=== PATIENT | male | born 1935 | race Caucasian/White ===

== ENCOUNTER 2017-02-11 16:48 | Inpatient (IN) | payer MEDICARE, MEDICAID ==
--- NOTE | 2017-02-11 16:58 | ED Physician Chart ---
ED Chief Complaint/HPI - Patient Information Date Seen:: 02/11/17 Time Seen:: 16:50 Chief Complaint:: Abdominal pain History of Present Illness:: onset x one day of crampy, diffuse, abd. pain with possible syncope; pt found on the floor at his assisted living home; no report of H/As, neck pain, C/P, SOB , A/N/V/D/C, fever, chills, dizziness, vertigo, weakness, or urinary s/s Historian:: Patient Review:: Nurse's Note Reviewed, Old Chart Reviewed, EMS run form Reviewed ED Review of Systems - Review of Systems General/Constitutional: Fever, Chills, No weight loss, Weakness, No diaphoresis , No edema, No loss of appetite Skin: No skin lesions, No rash, No bruising Head: No headache, No light-headedness Eyes: No loss of vision, No pain, No diplopia ENT: No earache, No nasal drainage, No sore throat, No tinnitus Neck: No neck pain, No swelling, No thyromegaly, No stiffness, No mass noted Cardio Vascular: No chest pain, No palpitations, No PND, No orthopnea, No edema Pulmonary: No SOB, No cough, No sputum, No wheezing GI: No nausea, No vomiting, No diarrhea, No pain, No melena, No hematochezia, No constipation, No hematemesis G/U: No dysuria, Frequency, No hematuria, Nocturia Musculoskeletal: No bone or joint pain, No back pain, No muscle pain Endocrine: No polyuria, No polydipsia Psychiatric: Prior psych history, No depression, No anxiety, No suicidal ideation, No homicidal ideation, Auditory hallucination, No visual hallucination Hematopoietic: No bruising, No lymphadenopathy Allergic/Immuno: No urticaria, No angioedema Neurological: Syncope, Focal symptoms, Weakness, Paresthesia, Headache, No seizure, Dizziness, Confusion, Vertigo ED Past Medical History - Past Medical History Obtainable: Yes Past Medical History: HTN, CVA/TIA, Arthritis Family History: Diabetes Melitus, HTN Social History: Non Smoker, No Alcohol, No Drug Use, Single, Care Facility Surgical History: None Psychiatricy History: Depression, Schizophrenia, Dementia Medication: Reviewed Family Medical History - Family Member Father History Unknown: Yes ED Physical Exam - Physical Examination General/Constitutional: Awake, Well-developed, well-nourished, Alert, No distress, GCS 15, Non-toxic appearing, Ambulatory Head: Atraumatic Eyes: Lids, conjuctiva normal, PERRL, EOMI Skin: Nl inspection, No rash, No skin lesions, No ecchymosis, Well hydrated, No lymphadenopathy ENMT: External ears, nose nl, Nasal exam nl, Lips, teeth, gums nl Neck: Nontender, Full ROM w/o pain, No JVD, No nuchal rigidity, No bruit, No mass, No stridor Respiratory: Nl effort/Exclusion, Clear to Auscultation, No Wheeze/Rhonchi/Rales Cardio Vascular: RRR, No murmur, gallop, rubs, NL S1 S2 GI: No tenderness/rebounding/guarding, No organomegaly, No hernia, Normal BS's, Nondistended, No mass/bruits, No McBurney tenderness : No CVA tenderness Extremities: No tenderness or effusion, Full ROM, normal strength in all extremities, No edema, Normal digits & nails Neuro/Psych: Alert/oriented, DTR's symmetric, Normal sensory exam, Normal motor strength, Judgement/insight normal, Mood normal, Normal gait, No focal deficits Misc: Normal back, No paraspinal tenderness ED Labs/Radiology/EKG Results - Lab Results Results: BUN: 27 - Radiology Results Results: NAD - EKG Interpretations EKG Time:: 17:26 Rate & Rhythm: 70; NSR Comments:: T- Wave Inversions ED Septic Shock - . Is Septic Shock (SBP<90, OR Lactate>4 mmol\L) present?: No ED Reassessment (Disposition) - Reassessment Reassessment Condition:: Improved - Diagnosis Diagnosis:: Dx: Myocardial Ischemia; Dehydration; Syncope; S/P Falls - Aftercare/Follow up Instructions Aftercare/Follow-Up Instructions:: Counseled pt regarding lab results/diagnosis & need follow up, Counseled pt & family regarding lab results/diagnosis & need follow up - Patient Disposition Discharge/Transfer:: Acute Care w/in this hosp Accepting Physician:: Dr. Brown Time Called:: 2014 Time Responded:: 20:15 Admitted to:: Telemetry Spoke to:: Dr. Brown Admitting Medical Physician:: Dr. Brown Condition at Disposition:: Stable, Improved
[2017-02-11] MEDS ORDERED: Sodium Chloride 0.9% 1,000 ML IV ONE (16:59)
[2017-02-11 18:09] LABS: ALB/GLOB RATIO 1.9 (1.0-1.8); ALKALINE PHOSPHATASE 66 U/L (34-104); AMYLASE SERUM 86 U/L (29-103); ANION GAP 11.4 (7.0-16.0); BILIRUBIN,TOTAL 0.7 mg/dL (0.3-1.0); BUN - UREA NITROGEN 27 mg/dL (7-25); BUN/CREATININE RATIO 20.8; CALCIUM SERUM 9.8 mg/dL (8.6-10.3); CARBON DIOXIDE 26.1 mEq/L (21.0-31.0); CHLORIDE 102 mEq/L (98-107); CREATININE - SERUM 1.3 mg/dL (0.7-1.3); GLUCOSE 123 mg/dL (70-105); LIPASE 25 U/L (11-82); POTASSIUM SERUM 3.5 mEq/L (3.5-5.1); SGOT 22 U/L (13-39); SGPT/ALT 19 U/L (7-52); SODIUM SERUM 136 mEq/L (136-145)
[2017-02-11 18:44] LABS: HEMATOCRIT 44.3 % (41.0-60); HEMOGLOBIN 14.4 gm/dL (12-16); RED BLOOD COUNT 5.05 Mil/cmm (3.80-5.80); WHITE BLOOD COUNT 10.1 Th/cmm (4.8-10.8)
[2017-02-11 18:45] LABS: % BASOPHILS 0.7 % (0.0-2.0); % EOSINOPHILS 1.4 % (0.0-5.0); % MONOCYTES 7.6 % (2.0-10.0); % NEUTROPHILS 71.3 % (40.0-80.0); MEAN CELL VOLUME 87.6 fl (80-99); MEAN CORPUSCULAR HEMOGLOBIN 28.6 pg (27.0-31.0); MEAN CORPUSCULAR HGB CONC 32.6 pg (28.0-36.0); MEAN PLATELET VOLUME 7.7 fl; NEUTROPHILE ABSOLUTE 7.2 Th/cmm (1.8-8.0); PLATELET COUNT 243 Th/cmm (150-400); RED CELL DISTRIBUTION WIDTH 13.2 % (11.5-20.0)
[2017-02-11 18:50] LABS: INR 0.97 (0.5-1.4); PROTHROMBIN TIME (TEST) 10.1 SECONDS (9.5-11.5)
[2017-02-11] MEDS: Sodium Chloride 0.9% 1,000 ML IV SCH (22:49)
[2017-02-11] MEDS: Acetaminophen 500 MG TAB PO PRN (22:54)
[2017-02-12 01:34] VITALS: BP 156/83
[2017-02-12 06:12] LABS: % BASOPHILS 0.1 % (0.0-2.0); % EOSINOPHILS 2.6 % (0.0-5.0); % LYMPHOCYTES 22.6 % (20.0-50.0); % MONOCYTES 7.3 % (2.0-10.0); % NEUTROPHILS 67.4 % (40.0-80.0); HEMATOCRIT 41.6 % (41.0-60); HEMOGLOBIN 14.2 gm/dL (12-16); MEAN CELL VOLUME 86.8 fl (80-99); MEAN CORPUSCULAR HEMOGLOBIN 29.5 pg (27.0-31.0); MEAN PLATELET VOLUME 7.7 fl; NEUTROPHILE ABSOLUTE 5.7 Th/cmm (1.8-8.0); PLATELET COUNT 224 Th/cmm (150-400); RED BLOOD COUNT 4.79 Mil/cmm (3.80-5.80); WHITE BLOOD COUNT 8.4 Th/cmm (4.8-10.8)
[2017-02-12 06:41] LABS: ANION GAP 10.5 (7.0-16.0); BUN - UREA NITROGEN 17 mg/dL (7-25); BUN/CREATININE RATIO 15.5; CALCIUM SERUM 8.5 mg/dL (8.6-10.3); CARBON DIOXIDE 23.9 mEq/L (21.0-31.0); CHLORIDE 110 mEq/L (98-107); CHOLESTEROL 137 mg/dL (<200); CREATININE - SERUM 1.1 mg/dL (0.7-1.3); GLUCOSE 110 mg/dL (70-105); POTASSIUM SERUM 3.4 mEq/L (3.5-5.1); SODIUM SERUM 141 mEq/L (136-145); TRIGLYCERIDES 110 mg/dL (<150)
--- NOTE | 2017-02-12 08:05 | Diagnostic Imaging Report ---
Head CT without intravenous contrast Indication: Syncope, falls Comparison: None Technique: Axial images were obtained from the vertex to the skull base without IV contrast. Coronal reconstructions were made. Total DLP: 788, CTDI41 FINDINGS: Images of the brain obtained without contrast demonstrate no evidence of an acute hemorrhage. Atrophy is noted. Diffuse white matter disease is seen with small old infarcts involving the bilateral occipital lobe regions. There is generalized ectasia of the intracranial arterial system. The ventricles and basal cisterns are patent. No mass effect or midline shift. Atherosclerosis is noted. There is mucosal thickening of the paranasal sinuses. No evidence of skull fracture or focal soft tissue swelling. IMPRESSION: No evidence of an acute intracranial hemorrhage. Diffuse atrophy and diffuse white matter disease which is nonspecific and may be due to chronic microvessel ischemia. Small old infarcts in the bilateral occipital regions are also noted Diffuse atherosclerotic vascular disease with generalized ectasia of the intracerebral arterial system.
--- NOTE | 2017-02-12 08:06 | Diagnostic Imaging Report ---
CHEST X-RAY: AP view INDICATION: pain COMPARISON: None FINDINGS: She is rotated. Left chest wall pacer is noted with leads in the region right atrium and right ventricle. There is evidence of prior median sternotomy. Chronic lung changes are seen with increased right basal lung markings. No focal consolidative or pleural effusions. Heart size at upper limits of normal. Tortuous aorta is noted. Degenerative changes of the spine are noted. IMPRESSION: Increased right basal lung markings likely due to atelectasis. No focal consolidation identified. Evidence of prior median sternotomy and cardiac pacemaker placement. Tortuous aorta with atherosclerotic vascular disease.
--- NOTE | 2017-02-12 08:17 | Diagnostic Imaging Report ---
CT abdomen and pelvis without intravenous contrast Indication: Abdominal pain Comparison: None, Technique: Axial images were obtained from the lung bases to the bilateral proximal femurs without IV contrast. Coronal reconstructions were made. total DLP: 359, CTDI7.6 FINDINGS: Atelectatic changes of the lung bases are noted. Pacemaker is partially visualized. There is evidence of prior median sternotomy. Assessment of the solid organs is limited due to lack of IV contrast. No evidence of focal hepatic, splenic, lesions. Pancreatic gland calcifications are noted. No focal adrenal lesions. There is a 8 mm right renal exophytic lesion possibly a cyst. Heterogeneous density seen along the scrotal region. Area of induration is seen along the right groin region with few pockets of gas. Gas-filled loops of bowel are noted. Mild diverticulosis is noted without evidence of diverticulitis. No appendicitis. Diffuse atherosclerotic vascular disease is noted. No evidence of free fluid or free air. Prominent prostate gland is noted. Mild generalized prominence of the urinary bladder wall is noted. Small bilateral fat-containing hernias are noted. Degenerative changes of this advanced degenerative changes of the spine are noted. IMPRESSION: Mild diverticulosis. No evidence of diverticulitis. Nonspecific gas-filled loops of bowel without evidence of obstruction. Moderate amount of stool is noted. Prominent soft tissue density the scrotal region with induration on the right groin region and a few pockets of gas in the right groin region. Correlation is made with infectious or inflammatory process. Consider further assessment with ultrasound. No evidence of free fluid. Prominent prostate gland please clinically clinical findings. Mild generalized urinary bladder wall thickening is noted which may be due to infectious or inflammatory process or possibly sequela patient's prominent prostate gland and bladder outlet obstruction. Small bilateral fat-containing hernias. 8 mm right renal exophytic lesion, probably a cyst. Ultrasound would further clarify Diffuse atherosclerotic vascular disease. Degenerative changes.
[2017-02-12] MEDS: Aspirin 81mg Chewable Tab PO SCH (08:35)
[2017-02-12 08:36] LABS: CREATINE KINASE MB 17.9 ng/mL (0.6-6.3)
--- NOTE | 2017-02-12 08:57 | Diagnostic Imaging Report ---
CHEST X-RAY: AP view INDICATION: Cardiomegaly COMPARISON: Chest x-ray 02/11/2017 FINDINGS: The patient is rotated. There is prominence of right paratracheal soft tissues. Improving lung aeration is noted. Left chest wall pacemaker is stable. No evidence of cardiomegaly. Tortuous aorta is noted with atherosclerosis. There is evidence of prior median sternotomy. No focal consolidation or effusions. IMPRESSION: No focal consolidation identified. There is improved aeration of the right lung base. No evidence of cardiomegaly. Tortuous aorta is noted with atherosclerosis. Postsurgical changes. Right paratracheal soft tissue density possibly due to rotation and prominent vasculature. If indicated CT would provide additional detail and assessment.
[2017-02-12] MEDS ORDERED: Non-Formulary Item 1 EA (Mirabegron [Myrbetriq] 50 MG) PO SCH (09:00)
[2017-02-12] MEDS: Ciprofloxacin 200mg Premix PB 200 MG/100 ML BAG IV SCH ×2 (10:48→20:34)
--- NOTE | 2017-02-12 10:59 | Diagnostic Imaging Report ---
KUB single view HISTORY: Abdominal pain. COMPARISON: None FINDINGS: Generalized gas-filled loops of bowel are noted. Degenerative changes of the spine are noted. Postsurgical changes of the lower mediastinum are noted. Atherosclerosis is noted. IMPRESSION: Nonspecific bowel gas pattern.
[2017-02-12] MEDS: Acetaminophen 500 MG TAB PO PRN ×2 (12:00→15:08)
[2017-02-12] MEDS: Sodium Chloride 0.9% 1,000 ML IV SCH (12:00)
--- NOTE | 2017-02-12 12:10 | History & Physical ---
ADMIT DATE: 02/12/2017 CHIEF COMPLAINT: Abdominal pain, weakness, and diarrhea. HISTORY OF PRESENT ILLNESS: This is an 81-year-old gentleman who lives at [facility] under the care of Dr. Beltran with history significant for essential hypertension, history of CVA/TIA, arthritis, history of CAD, status post pacemaker placement, who is somewhat of a poor historian, transferred to the ER secondary to a 3-day history of worsening abdominal cramping/pain and worsening weakness. The patient denies any unusual p.o. intake, but the pain got worst yesterday to the point that he almost fainted as he was in the toilet. At that time, he reports an episode of diarrhea, which is reported as nonbloody. He was able to get up and call for help and now has been transferred to this facility for further management and care. On further questioning, he denies any unusual p.o. intake, any recent traveling, or any known sick contacts. He also denies any fever or chills. He does admit to multiple episodes of nausea and vomiting, nonbloody, no coffee ground reported. As noted above, he has had diarrhea as well, which is nonbloody. Given his dizziness, the patient underwent a head CT at the ER showing diffuse atrophy and white matter disease, which is nonspecific as well as diffuse atherosclerotic vascular disease. He also underwent an abdominal and pelvic CT showing, mild diverticulosis with no evidence of diverticulitis. The patient has been admitted to the medical floor for further management and care. Pain has been more localized on the left lower quadrant and is not necessarily associated with p.o. intake, although lately when eats, he feels nauseated. PAST MEDICAL HISTORY: As noted above. PAST SURGICAL HISTORY: Pacemaker placement. FAMILY HISTORY: There is history of diabetes and hypertension. SOCIAL HISTORY: No alcohol. No ETOH or illicit drug usage. Currently, lives at [facility]. ALLERGIES: NKDA. OUTPATIENT MEDICATIONS: Ginkgo biloba 60 mg every day, Tylenol with Codeine #4 one tab q. 8 hours p.r.n. for severe pain, Proscar 5 mg every day, he is on Myrbetriq 50 every day, Protonix 40 at bedtime, Requip 0.5 every day, and valsartan 320 at bedtime. REVIEW OF SYSTEMS: CONSTITUTIONAL: He denies any fever, chills, or recent weight loss. CARDIOVASCULAR: No chest pain or palpitations. PULMONARY: No cough or phlegm production. No shortness of breath. GASTROINTESTINAL: As noted above, he has been experiencing abdominal pain associated with nausea, vomiting, and mild diarrhea. GENITOURINARY: Denies any hematuria, dysuria, or nocturia. NEUROLOGIC: Denies any syncopal episodes, any headaches, or any changes in vision. PHYSICAL EXAMINATION: VITAL SIGNS: Temperature 98.0, pulse 75-77, blood pressure 181/96, respirations 18, satting 95-97% on room air. GENERAL: Well developed, well nourished, asleep, but arousable. He is oriented x 3. HEAD AND NECK: Normocephalic, atraumatic. Pupils reactive to light. Extraocular movements are intact. Oropharynx moist and clear. CARDIAC: Regular rate and rhythm without any murmurs. LUNGS: Clear to auscultation bilaterally. ABDOMEN: Soft, supple, tender to palpation on the left lower quadrant with no rebound. There are currently hypoactive bowel sounds. There are no peritoneal signs. LOWER EXTREMITIES: There is no edema. NEUROLOGIC: Grossly intact, although full exam cannot be done. Cranial nerves 2-12 grossly within normal range. LABORATORY DATA: CBC within normal limits. Chem-7 showed a BUN of 27 and glucose of 123. CPK was 277. Troponin 0.02. LFTs within normal limits. DIAGNOSTICS: Please refer to the HPI. There was also an x-ray done showing no focal consolidation identified. There is no evidence of cardiomegaly. There is tortuous aorta as noted with atherosclerosis and postsurgical changes, right paratracheal soft tissue density, possible rotation and prominent vasculature was noted. On the pelvic CT, there is also an 8 mm right renal exophytic lesion, probably a cyst. IMPRESSION: 1. Abdominal pain. Differential will include diverticulosis/diverticulitis versus colitis versus constipation given his narcotics usage. Other etiologies include gastroenteritis. 2. History of coronary artery disease/arrhythmia status post pacemaker placement. 3. History of cerebrovascular accident/transient ischemic attack. 4. Essential hypertension. 5. Right kidney lesions, likely cyst. 6. History of acid reflux disease. 7. History of BPH. 8. History of restless legs syndrome. PLAN: The patient has been admitted to the medical floor for further management and care. He has been placed on IV fluids and empiric IV antibiotics, namely Cipro and Flagyl. I will also start him on Protonix IV push and will also give him Solu-Medrol and taper as tolerated. KUB will also be asked for and GI eval for further management and care. He will be kept on his other medications as scheduled. He will be placed on clonidine p.r.n. for elevated blood pressure readings. JOB# [id number] RUBI
[2017-02-12] MEDS: methylPREDNISolone SS 40 mg Vial IVP SCH ×2 (15:03→20:35)
[2017-02-12 16:12] LABS: URINE BILIRUBIN NEGATIVE (NEGATIVE); URINE BLOOD MODERATE (NEGATIVE); URINE GLUCOSE (UA) NEGATIVE (NEGATIVE); URINE KETONE TRACE mg/dL (NEGATIVE); URINE PH 5.5 (4.6 - 8.0); URINE PROTEIN TRACE mg/dL (NEGATIVE); URINE UROBILINOGEN 0.2 E.U./dL (0.2 - 1.0)
[2017-02-12 16:32] LABS: URINE BACTERIA NONE SEEN /hpf (NONE SEEN); URINE COLOR YELLOW; URINE EPITHELIAL CELLS RARE /lpf (FEW); URINE WBC 0-2 /hpf (0-5)
--- NOTE | 2017-02-12 18:47 | Cardiology ---
02/12/2017 PATIENT OF: Dr. Brown. M-MODE ECHOCARDIOGRAM: Mitral valve, anterior leaflet of mitral valve shows normal excursion, EF velocity. Posterior leaflets of mitral valve shows normal excursion. Left ventricular posterior wall shows increased thickness, normal excursion. Interventricular septum shows increased thickness, normal excursion, hypertrophy of the left ventricle, ejection fraction 55%. Left atrium normal. Aortic root shows normal dimension, normal excursion of aortic leaflets. CONCLUSION: Hypertrophy of the left ventricle, ejection fraction 55%. 2D ECHOCARDIOGRAM: Long axis view showed normal sized left ventricle with hypertrophy of the left ventricle. Left atrium normal. Aortic root shows normal dimension, normal excursion of aortic leaflets. Short axis view of mitral valve normal. Short axis view of aortic valve normal. Apical 4-chamber view showed normal sized left ventricle, left atrium, right ventricle, right atrium, tricuspid and mitral valve. CONCLUSION: Hypertrophy of the left ventricle, ejection fraction 55%. Doppler study shows mild mitral regurgitation, tricuspid regurgitation, and aortic regurgitation. [facility]# [id number]
[2017-02-12] MEDS ORDERED: Potassium Chloride 20 mEq ER Tab PO ONE (18:54)
[2017-02-12] MEDS ORDERED: Pantoprazole 40 mg EC Tab PO SCH (21:00)
[2017-02-13] MEDS ORDERED: Acetaminophen 500 MG TAB ONE ×2 (01:04→05:10)
[2017-02-13] MEDS: Acetaminophen 500 MG TAB PO PRN ×4 (01:06→21:15)
[2017-02-13] MEDS: Sodium Chloride 0.9% 1,000 ML IV SCH ×2 (03:20→13:35)
[2017-02-13] MEDS: methylPREDNISolone SS 40 mg Vial IVP SCH ×3 (05:07→20:53)
[2017-02-13 06:30] LABS: % BASOPHILS 0.7 % (0.0-2.0); % LYMPHOCYTES 13.8 % (20.0-50.0); % MONOCYTES 0.8 % (2.0-10.0); % NEUTROPHILS 84.7 % (40.0-80.0); HEMATOCRIT 41.7 % (41.0-60); HEMOGLOBIN 13.9 gm/dL (12-16); MEAN CELL VOLUME 87.9 fl (80-99); MEAN CORPUSCULAR HEMOGLOBIN 29.4 pg (27.0-31.0); MEAN CORPUSCULAR HGB CONC 33.4 pg (28.0-36.0); MEAN PLATELET VOLUME 7.7 fl; NEUTROPHILE ABSOLUTE 6.5 Th/cmm (1.8-8.0); PLATELET COUNT 229 Th/cmm (150-400); RED BLOOD COUNT 4.74 Mil/cmm (3.80-5.80); RED CELL DISTRIBUTION WIDTH 13.1 % (11.5-20.0); WHITE BLOOD COUNT 7.8 Th/cmm (4.8-10.8)
[2017-02-13 06:54] LABS: ALB/GLOB RATIO 1.7 (1.0-1.8); ALKALINE PHOSPHATASE 50 U/L (34-104); ANION GAP 11.3 (7.0-16.0); BILIRUBIN,TOTAL 0.7 mg/dL (0.3-1.0); BUN - UREA NITROGEN 26 mg/dL (7-25); CHLORIDE 110 mEq/L (98-107); CREATININE - SERUM 1.3 mg/dL (0.7-1.3); GLUCOSE 170 mg/dL (70-105); POTASSIUM SERUM 4.3 mEq/L (3.5-5.1); SGOT 20 U/L (13-39); SGPT/ALT 14 U/L (7-52); SODIUM SERUM 139 mEq/L (136-145)
[2017-02-13] MEDS: Aspirin 81mg Chewable Tab PO SCH (10:27)
[2017-02-13] MEDS ORDERED: Probiotic Screen MC PRN (14:23)
[2017-02-13] MEDS ORDERED: APAP/Codeine 300 mg/30 mg Tab PO PRN (19:47)
--- NOTE | 2017-02-13 20:08 | Discharge Summary ---
DATE OF DISCHARGE: 02/13/2017 ADMITTING DIAGNOSES: 1. Abdominal pain. Differential includes diverticulitis versus colitis versus acute gastroenteritis. 2. Mild azotemia/renal insufficiency. 3. Right kidney cyst. SECONDARY DIAGNOSES: Include: 1. History of coronary artery disease. 2. History of arrhythmia, status post pacemaker placement. 3. History of cerebrovascular accident. 4. Essential hypertension. 5. History of acid reflux disease. 6. History of benign prostatic hyperplasia. 7. History of restless legs syndrome. DISCHARGE DIAGNOSES: 1. Abdominal pain, clinically resolved, likely acute gastroenteritis versus colitis. 2. Dehydration, improved. CONSULTANTS: No consultants were used during this admission. MAJOR PROCEDURES: Include head CT showing diffuse atrophy, white matter disease, which is nonspecific as well as diffuse atherosclerotic vascular disease. CT of the abdomen and pelvis showing mild diverticulosis with no evidence of diverticulitis. He also had a 2D echo showing hypertrophy of the left ventricle with an EF of 55%. BRIEF HOSPITAL COURSE: An 81-year-old gentleman who was transferred from [facility] after a 3-day history of worsening abdominal cramping/pain associated with weakness. He also reported nausea, vomiting and some diarrhea, but no unusual p.o. intake. He also denied any fever or chills. CT of the abdomen and pelvis was done in the ER showing the above-mentioned resolved. On physical exam, he had tenderness to palpation on the left middle and left lower quadrant. He was admitted and placed on IV antibiotics, IV fluids and was placed also on Solu-Medrol. By hospital day #2, his symptoms improved, no longer complaining of abdominal pain, nausea, vomiting or diarrhea. He has been tolerating his diet and is currently eating 80%-100%. DISCHARGE MEDICATIONS: Tylenol 500 mg q. 4 p.r.n. for pain, aspirin 81 every day, Cipro 250 mg b.i.d. x 7 days, clonidine p.r.n. for SBP greater than 160, Proscar 5 mg every day, Solu-Medrol 40 mg IV q.12, Flagyl 500 mg q.i.d. x 7 more days, Zofran 4 mg IV/p.o. q.4h p.r.n. for nausea and vomiting, and Protonix 40 mg every day, and Diovan 320 mg q.h.s. CONDITION ON DISCHARGE: Stable. DISPOSITION: The patient will be discharged to jail facility ([facility]) for continuation of his IV antibiotics and for physical therapy. [facility]# [id number] MTDSalome
--- NOTE | 2017-02-13 23:15 | Consultation ---
DATE OF CONSULTATION: 02/13/2017 INPATIENT CONSULTATION NOTE REFERRING PHYSICIAN: Dr. Brown. REASON FOR CONSULTATION: Abdominal pain. HISTORY OF PRESENT ILLNESS: This is an 81-year-old male with complaints of abdominal pain today along with some diarrhea. The patient has other medical problems, but at this time, he reported having nonbloody diarrhea and vague abdominal pain. The patient denies having any nausea or vomiting. He had a CT scan done that showed diverticulosis without diverticulitis. The patient is somewhat of a poor historian. PAST MEDICAL HISTORY: Hypertension, stroke, TIA, arthritis, and coronary artery disease. PAST SURGICAL HISTORY: Pacemaker placement. FAMILY HISTORY: Noncontributory. SOCIAL HISTORY: No tobacco, alcohol, or IV drug usage. Resident of [facility]. ALLERGIES: None. CURRENT MEDICATIONS: Tylenol, aspirin, Cipro, Proscar, Solu-Medrol, Flagyl, Zofran, Protonix, Requip, and Diovan. REVIEW OF SYSTEMS: Ten-point review of systems was unobtainable. PHYSICAL EXAMINATION: VITAL SIGNS: Temperature 97.6, breathing 18, pulse of 67, blood pressure 159/80, satting 95%. GENERAL: In no apparent distress. EYES: Anicteric, normal conjunctivae. HEENT: Normocephalic and atraumatic. Moist mucous membranes. NECK: Soft and supple. CHEST: Clear. No effort. CARDIOVASCULAR: Regular rate and rhythm. ABDOMEN: Soft. Mildly tender. No rebound or guarding. SKIN: Warm and dry. EXTREMITIES: Reveal no cyanosis. NEUROLOGIC: Awake. LABORATORY DATA: Show white count 7.8, hemoglobin 13.9, platelets of 229,000, total bilirubin 0.7, AST 20, ALT 14, alkaline phosphatase 50. CT abdomen and pelvis showed diverticulosis without diverticulitis. Moderate amount of stool is noted in the colon. There is also some soft tissue density in the scrotal region, some prominence of the prostate gland. KUB showed nonspecific bowel gas pattern. IMPRESSION: This is an 81-year-old male with vague abdominal pain along with some diarrhea. Cause of abdominal pain could be due to constipation, IBS. CT does not show any evidence of diverticulitis, only diverticulosis. The patient also has abnormal prostate on CT, and based on this, I would recommend the primary or hospitalist get a urologist to see the patient as this may be a contributing factor to his abdominal pain. For the diarrhea, this could be due to an infectious process or overflow diarrhea. If the patient is constipated, stool collection would be reasonable. If the diarrhea persists, then the patient may need colonoscopy. PLAN: 1. Check stool studies. 2. Provide the patient with some mineral oil to alleviate the constipation. 3. If diarrhea persists, may need colonoscopy. 4. PCP and/or hospitalist to consider urology evaluation. Thank you for allowing me to participate. Please call me if you have any questions. JOB# [id number]
[2017-02-14 06:01] LABS: MEAN PLATELET VOLUME 8.4 fl
[2017-02-14 06:13] LABS: HEMATOCRIT 39.6 % (41.0-60); HEMOGLOBIN 13.7 gm/dL (12-16); MEAN CELL VOLUME 87.4 fl (80-99); MEAN CORPUSCULAR HEMOGLOBIN 30.3 pg (27.0-31.0); MEAN CORPUSCULAR HGB CONC 34.6 pg (28.0-36.0); PLATELET COUNT 220 Th/cmm (150-400); RED BLOOD COUNT 4.53 Mil/cmm (3.80-5.80)
[2017-02-14 06:18] LABS: ANION GAP 9.9 (7.0-16.0); BUN - UREA NITROGEN 31 mg/dL (7-25); BUN/CREATININE RATIO 25.8; CHLORIDE 110 mEq/L (98-107); CREATININE - SERUM 1.2 mg/dL (0.7-1.3); GLUCOSE 118 mg/dL (70-105); POTASSIUM SERUM 3.9 mEq/L (3.5-5.1); SODIUM SERUM 139 mEq/L (136-145)
[2017-02-14 06:28] LABS: WHITE BLOOD COUNT 12.6 Th/cmm (4.8-10.8)
[2017-02-14 07:01] LABS: NEUTROPHILS 63 % (40-80); TOTAL CELLS COUNTED 100
[2017-02-14] MEDS: Aspirin 81mg Chewable Tab PO SCH (08:30)
[2017-02-14] MEDS: methylPREDNISolone SS 40 mg Vial IVP SCH (08:31)
[2017-02-14] MEDS: Acetaminophen 500 MG TAB PO PRN (08:42)
--- NOTE | 2017-02-14 08:44 | GI Progress Note ---
Subjective - Review of Systems Subjective: DENIES ABD PAIN Objective - Results Result Diagrams: 02/14/17 05:25 02/14/17 05:25 Recent Labs: Laboratory Last Values WBC 12.6 Th/cmm (4.8-10.8) H D 02/14/17 05:25 RBC 4.53 Mil/cmm (3.80-5.80) 02/14/17 05:25 Hgb 13.7 gm/dL (12-16) 02/14/17 05:25 Hct 39.6 % (41.0-60) L 02/14/17 05:25 MCV 87.4 fl (80-99) 02/14/17 05:25 MCH 30.3 pg (27.0-31.0) 02/14/17 05:25 MCHC Differential 34.6 pg (28.0-36.0) 02/14/17 05:25 RDW 13.0 % (11.5-20.0) 02/14/17 05:25 Plt Count 220 Th/cmm (150-400) 02/14/17 05:25 MPV 8.4 fl 02/14/17 05:25 Neutrophils % [employer] 02/14/17 05:25 Lymphocytes % [employer] 02/14/17 05:25 Monocytes % [employer] 02/14/17 05:25 Eosinophils % [employer] 02/14/17 05:25 Basophils % [employer] 02/14/17 05:25 Neutrophils (Manual) 63 % (40-80) 02/14/17 05:25 Lymphocytes 30 % (20-50) 02/14/17 05:25 Monocytes 7 % (2-10) 02/14/17 05:25 PT 10.1 SECONDS (9.5-11.5) 02/11/17 17:41 INR 0.97 (0.5-1.4) 02/11/17 17:41 Sodium 139 mEq/L (136-145) 02/14/17 05:25 Potassium 3.9 mEq/L (3.5-5.1) 02/14/17 05:25 Chloride 110 mEq/L (98-107) H 02/14/17 05:25 Carbon Dioxide 23.0 mEq/L (21.0-31.0) 02/14/17 05:25 Anion Gap 9.9 (7.0-16.0) 02/14/17 05:25 BUN 31 mg/dL (7-25) H 02/14/17 05:25 Creatinine 1.2 mg/dL (0.7-1.3) 02/14/17 05:25 Est GFR ( Amer) TNP 02/14/17 05:25 Est GFR (Non-Af Amer) TNP 02/14/17 05:25 BUN/Creatinine Ratio 25.8 02/14/17 05:25 Glucose 118 mg/dL (70-105) H 02/14/17 05:25 Hemoglobin A1c % 6.3 % (4.0-6.0) H 02/12/17 05:51 Calcium 9.0 mg/dL (8.6-10.3) 02/14/17 05:25 Magnesium 2.0 mg/dL (1.9-2.7) 02/14/17 05:25 Total Bilirubin 0.7 mg/dL (0.3-1.0) 02/13/17 06:11 AST 20 U/L (13-39) 02/13/17 06:11 ALT 14 U/L (7-52) 02/13/17 06:11 Alkaline Phosphatase 50 U/L (34-104) 02/13/17 06:11 Creatine Kinase 351 U/L (30-223) H 02/12/17 05:51 CK-MB (CK-2) 17.9 ng/mL (0.6-6.3) H 02/12/17 05:51 Troponin I 0.02 ng/mL (0.01-0.05) 02/12/17 09:00 B-Natriuretic Peptide 110.0 pg/mL (5.0-100.0) H 02/11/17 17:41 Total Protein 6.3 gm/dL (6.0-8.3) 02/13/17 06:11 Albumin 4.0 gm/dL (4.2-5.5) L 02/13/17 06:11 Globulin 2.3 gm/dL 02/13/17 06:11 Albumin/Globulin Ratio 1.7 (1.0-1.8) 02/13/17 06:11 Triglycerides 110 mg/dL (<150) 02/12/17 05:51 Cholesterol 137 mg/dL (<200) 02/12/17 05:51 LDL Cholesterol Direct 81 mg/dL (75-193) 02/12/17 05:51 HDL Cholesterol 46 mg/dL (23-92) 02/12/17 05:51 Amylase 86 U/L (29-103) 02/11/17 17:41 Lipase 25 U/L (11-82) 02/11/17 17:41 TSH 1.31 uIU/ml (0.34-5.60) 02/12/17 05:51 Urine Source CLEAN C 02/12/17 16:02 Urine Color YELLOW 02/12/17 16:02 Urine Clarity CLEAR (CLEAR) 02/12/17 16:02 Urine pH 5.5 (4.6 - 8.0) 02/12/17 16:02 Ur Specific [place] 1.020 (1.005-1.030) 02/12/17 16:02 Urine Protein TRACE mg/dL (NEGATIVE) 02/12/17 16:02 Urine Glucose (UA) NEGATIVE mg/dL (NEGATIVE) 02/12/17 16:02 Urine Ketones TRACE mg/dL (NEGATIVE) 02/12/17 16:02 Urine Blood MODERATE (NEGATIVE) H 02/12/17 16:02 Urine Nitrate NEGATIVE (NEGATIVE) 02/12/17 16:02 Urine Bilirubin NEGATIVE (NEGATIVE) 02/12/17 16:02 Urine Urobilinogen 0.2 E.U./dL (0.2 - 1.0) 02/12/17 16:02 Ur Leukocyte Esterase NEGATIVE (NEGATIVE) 02/12/17 16:02 Urine RBC 10-25 /hpf (0-5) H 02/12/17 16:02 Urine WBC 0-2 /hpf (0-5) 02/12/17 16:02 Ur Epithelial Cells RARE /lpf (FEW) 02/12/17 16:02 Urine Bacteria NONE SEEN /hpf (NONE SEEN) 02/12/17 16:02 - Physical Exam Vitals and I&O: Vital Signs Temp 98.8 F 02/14/17 08:00 Pulse 68 02/14/17 08:00 Resp 19 02/14/17 08:00 BP 158/86 02/14/17 08:00 Pulse Ox 97 02/14/17 08:00 Intake & Output 02/13/17 02/14/17 02/14/17 18:59 06:59 18:59 Intake Total 800 300 Output Total 1400 0 Balance -600 300 Weight (lbs) 70.307 kg 68.946 kg Intake: Oral 800 300 Output: Urine 1400 Stool 0 Other: # Voids 4 # Bowel Movements 0 Active Medications: Current Medications Acetaminophen (Tylenol Extra Strength) 500 mg PO Q4HR PRN PRN Reason: Pain (Mild) Stop: 04/12/17 20:58 Last Admin: 02/14/17 08:42 Dose: 500 mg Acetaminophen/Codeine Phosphate (Tylenol W/Codeine #3) 1 tab PO Q6H PRN PRN Reason: Pain (Moderate) Stop: 04/14/17 19:46 Aspirin (Aspirin Chewable) 81 mg PO DAILY [facility] Stop: 04/13/17 08:59 Last Admin: 02/14/17 08:30 Dose: 81 mg Ciprofloxacin (Cipro) 250 mg PO BID [facility] Stop: 04/14/17 09:44 Last Admin: 02/14/17 08:29 Dose: 250 mg Finasteride (Proscar) 5 mg PO DAILY [facility] PRN Reason: Protocol Stop: 04/13/17 08:59 Last Admin: 02/14/17 08:28 Dose: 5 mg Sodium Chloride (Nacl 0.9%) 1,000 mls @ 75 mls/hr IV .[id number] [facility] Stop: 04/12/17 21:00 Last Admin: 02/13/17 13:35 Dose: Not Given Methylprednisolone Sodium Succinate (Solu-Medrol) 40 mg IVP Q12HR [facility] Stop: 04/14/17 09:44 Last Admin: 02/14/17 08:31 Dose: 40 mg Metronidazole (Flagyl) 500 mg PO QID [facility] Stop: 04/13/17 09:59 Last Admin: 02/14/17 08:29 Dose: 500 mg Mineral Oil (Mineral Oil 30 Ml) 30 ml PO DAILY PRN PRN Reason: Constipation Stop: 04/14/17 10:24 Last Admin: 02/14/17 08:39 Dose: 30 ml Miscellaneous (Mirabegron [Myrbetriq]) 50 mg PO DAILY [facility] Stop: 04/13/17 08:59 Miscellaneous (Probiotic Screen) 1 ea [facility] PRN PRN PRN Reason: PROTOCOL Stop: 04/14/17 14:22 Ondansetron HCl (Zofran) 4 mg IV Q4H PRN PRN Reason: Nausea / Vomiting Stop: 04/13/17 10:18 Pantoprazole Sodium (Protonix) 40 mg IVP DAILY [facility] Stop: 04/13/17 10:14 Last Admin: 02/14/17 08:30 Dose: 40 mg Ropinirole HCl (Requip) 0.5 mg PO DAILY [facility] Stop: 04/13/17 08:59 Last Admin: 02/14/17 08:32 Dose: 0.5 mg Valsartan (Diovan) 320 mg PO HS [facility] Stop: 04/13/17 20:59 Last Admin: 02/13/17 20:53 Dose: 320 mg Assessment/Plan - Problem List Patient Problems: All Active Problems POSSIBLE FALL AND ABDOMINAL PAIN (Acute) - Assessment Assessment: 81 YO MALE WITH ABD PAIN THAT HAS IMPROVED COULD BE DUE TO CONSTIPATION PER CT PT MAY HAVE AN OVERFLOW DIARRHEA FROM CONSTIPATION LFTS NORMAL 1.CONT SUPP CARE 2.LAXATIVES 3.CONSIDER SCREENING COLONOSCOPY OUTPATIENT 4.CHECK STOOL TEST 5.CALL PLACED TO DR ESTRADA
== END 2017-02-14 10:20 | DRG 392 ==
LOC: ER 16:48 → TELE 20:20
PROVIDERS: ADMIT Internal Medicine; ATTEND Internal Medicine
DX: K52.9 Noninfective gastroenteritis and colitis, unspecified (principal); E86.0 Dehydration; N28.1 Cyst of kidney, acquired; F03.90 Unspecified dementia, unspecified severity, without behavioral disturbance, psychotic disturbance, mood disturbance, and anxiety; K59.00 Constipation, unspecified; K57.90 Diverticulosis of intestine, part unspecified, without perforation or abscess without bleeding; I10 Essential (primary) hypertension; I25.10 Atherosclerotic heart disease of native coronary artery without angina pectoris; I49.9 Cardiac arrhythmia, unspecified; K21.9 Gastro-esophageal reflux disease without esophagitis; N40.0 Benign prostatic hyperplasia without lower urinary tract symptoms; M19.90 Unspecified osteoarthritis, unspecified site; F32.9 Major depressive disorder, single episode, unspecified; F20.9 Schizophrenia, unspecified; R55 Syncope and collapse; W18.30XA Fall on same level, unspecified, initial encounter; Y92.89 Other specified places as the place of occurrence of the external cause; Z95.0 Presence of cardiac pacemaker; Z86.73 Personal history of transient ischemic attack (TIA), and cerebral infarction without residual deficits; Y93.89 Activity, other specified; Y99.8 Other external cause status
CPT/HCPCS: 36415-UA; 70450-TC; 71010-TC; 74000-TC; 80048-TC; 80053-TC; 80061-TC; 81001-TC; 82150-TC; 82550-TC; 82553; 83036-90; 83690-TC; 83735-TC; 83880-TC; 84443-TC; 84484-TC; 85007-TC; 85025-TC; 85027-TC; 85610-TC; 87230-TC; 93005; 94760; 97530; C9113; J0744; J2920; J7030; X3904; Z7610